=== PATIENT | female | born 2005 | race Caucasian/White ===

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

== ENCOUNTER 2025-04-24 12:56 | Outpatient (OUT) | payer BC, SELFPAY ==
[2025-04-24 13:46] LABS: Free T3 2.83 pg/mL (2.91-4.70); Thyroid Stimulating Hormone 1.113 uIU/mL (0.516-4.130)
[2025-04-26 20:12] LABS: Thyrotropin Receptor Ab, Serum <1.10 IU/L (0.00-1.75)
== END 2025-04-24 12:57 | disposition home or self-care (01) ==
LOC: LAB 05-01 11:26
PROVIDERS: PCP Nurse Practitioner Family; Visit Provider Internal Medicine
DX: R94.6 Abnormal results of thyroid function studies (principal)
CPT/HCPCS: 36415; 83520; 84439; 84442; 84443; 84480; 84481; 86376; 86800

== ENCOUNTER 2025-08-03 08:42 | Outpatient (OUT) | payer BC, SELFPAY ==
--- NOTE | 2025-08-03 08:45 | US_ITS ---
The [address] [address] Patient Name: RONNIE AGUILERA MRN: [id number] date: 2005 Sex: F Assigned Patient Location: US Current Patient Location: US Accession/Order Number: [id number] Exam Date: 08/03/2025 08:48 Report Date: 08/03/2025 10:16 At the request of: HENRIETTA HEREDIA Procedure: US abdomen limited LIMITED ABDOMINAL ULTRASOUND - spleen: CLINICAL HISTORY: Left Upper Quadrant Abdominal Pain COMPARISON: None The spleen is normal in size and echotexture measuring 10.9 cm in craniocaudal dimension. No intrasplenic masses are identified. The left lobe of the liver is noted to extend over the top of the spleen. The adjacent left kidney is normal in size and shows no hydronephrosis. There is no perinephric fluid. US/US abdomen limited IMPRESSION: NORMAL SPLEEN Impression dictated by: Karla Apple M.D. 08/03/2025 10:16 AM Dictation Location: [place] [address] Electronically authenticated by: [id number] Date: 08/03/2025 10:16
--- OUTSIDE RECORDS SUMMARY | 2025-08-03 08:45 | XMS_ITS | Clinical Summary ---
Author Organization [facility] Address [address] [place] [id number] Care Team Providers Care Assistant Tennis Professional Name Role Phone Unavailable Primary Care Provider Unavailabl e Allergies Active AllergyReactionsCriticalityNoted DateCommentsVancomycinRash,Swelling 04/14/2024 Medications MedicationSigDispense QuantityRefillsLast FilledStart DateEnd DateStatus ISIBLOOM 0.15-0.03 mg per tablet Take 1 tablet by mouth every morning.Active Family History Medical HistoryRelationCommentsDiabetesOtherRelationStatusCommentsOther Social History Tobacco UseTypesPacks/DayYears UsedDateSmoking Tobacco: NeverSmokeless Tobacco: Never Tobacco Cessation:Counseling Given: Not Answered CommentsUnknownSex and Gender InformationValueDate RecordedSex Assigned at BirthNot on fileLegal JvmYdldse83/02/2024 8:46 AM EDTGender IdentityNot on fileSexual OrientationNot on file Plan of Treatment Health MaintenanceDue DateLast DoneCommentsPeds To Adult Transition Initial Fpsdrgddmt97/28/2018Peds To Adult Transition Annual Oikeqowfwj29/28/2020HPV Vaccine (1 - 3-dose series)2020Meningococcal B Vaccine (1 of 2 - Standard) 2021nxiety Dxjjbhdtf63/28/2024hlamydia Screening (18-24)12/13/2023 Depression Wnpurjapw56/28/2024GC (Gonorrhea) Screening (18-24)12/13/2023HIV Rlzaplfez83/28/2024Hepatitis C Hfsavnxss54/28/2024ovid-19 Vaccine ( - 2024- season)2025Influenza Vaccine (#1), 06/17/2006 DTaP,Tdap,Td Vaccine (7 - Td or Tdap)8003/25/2018, 04/04/2011, 12/31/2006, Additional history existsHepatitis B VhbljrgFisqhqtom64/01/2006, 04/06/2006, 02/02/2006, Additional history existsMeningococcal Conjugate Vaccine Vbawcqnvo57/28/2023, 03/25/[address] [place] [address]
--- OUTSIDE RECORDS SUMMARY | 2025-08-03 08:45 | XMS_ITS | Clinical Summary ---
Author Organization [facility] Healthcare Address [address] [place] [address] Care Team Providers Care Building Architect Name Role Phone Natasha Jordan OD Unavailable Allergies Active AllergyReactionsCriticalityNoted DateCommentsVancomycinRash,SwellingLow 04/14/2024 Medications MedicationSigDispense QuantityRefillsLast FilledStart DateEnd DateStatus amitriptyline (Elavil) 25 MG tablet Take 25 mg by mouth at uvindun93/19/2025Active desogestrel-ethinyl estradiol (Enskyce) 0.15-30 MG-MCG tablet Indications: control counselingTake 1 tablet by mouth in the morning. 28 tablet 120//[id number]/6Active Resolved Problems ProblemNoted DateDiagnosed DateResolved DateLesion of iris/08/2023 Immunizations ImmunizationAdministration DatesNext JnzLDpV73/01/2006,04/06/2006,02/02/2006DTaP / Hep B / IPV06/17/2006,04/06/2006,02/02/2006DTaP / IPV04/04/2011DTaP, Fywvhccmcbk47/17/2007Hep A, Adult12/13/2012,04/04/2011Hep B, adult06/17/2006, 04/06/2006,02/02/2006,2005Hib (HbOC)04/06/2006,02/02/2006Hib (PRP-T) 12/31/2006,06/17/2006,04/06/2006,02/02/2006Influenza Whole07/17/2006,06/17/2006 MMR04/04/2011,12/31/2006MMRV12/31/2006Meningococcal ACWY, aaunwvfheje74/09/2018 Meningococcal CUB3U20Meningococcal RXH4J1403/25/2018Pneumococcal Conjugate PCV 13012/31/2006,06/17/2006,04/06/2006,02/02/2006Pneumococcal Conjugate PCV 7 12/31/2006,06/17/2006,04/06/2006,02/02/2006Polio, Eqetzdvpytc50/19/2011, 06/17/2006,04/06/2006,02/02/2006TD (adult), 2 Lf tetanus toxoid, preservative free, lydlmios28/09/1572Eypd32/09/2018,04/04/2011,12/31/2006,06/17/2006, 04/06/2006,02/02/20066731Lkxntxhjs99/19/2011,12/31/2006 Family History RelationNameStatusCommentsBrotherx 2AliveFatherAliveMotherAliveSisterx 1Alive Social History Tobacco UseTypesPacks/DayYears UsedDateSmoking Tobacco: NeverSmokeless Tobacco: Never Tobacco Cessation:Counseling Given: Not Answered Alcohol UseStandard Drinks/WeekCommentsNever0 (1 standard drink = 0.6 oz pure alcohol)CommentsUnknownSex and Gender InformationValueDate RecordedSex Assigned at BirthNot on fileLegal RjaAvsgsm86/15/2023 10:14 PM EDTGender IdentityNot on fileSexual OrientationNot on file Last Filed Vital Signs Vital SignReadingTime TakenCommentsBlood Hfzwrtcf796/7806 10:46 AM EDT Uolkd4873 2:48 PM EDTTemperature--Respiratory Qdeb4413 2:48 PM EDTOxygen Rrcsikirma75%04/24/2025 2:48 PM EDTInhaled Oxygen Concentration-- Ddkpsn57.9 kg (132 lb)04/24/2025 2:48 PM FSIIpnmsc461.3 cm (5' 3.5 )04/24/2025 2:48 PM EDTBody Mass Index23.02004/24/2025 2:48 PM EDT Plan of Treatment Not on file Insurance Care Teams Team MemberRelationshipSpecialtyStart DateEnd Date Natasha Jordan OD [address] [place] [address] Referring PhysicianOptometry12/16/23
== END 2025-08-03 08:43 | disposition home or self-care (01) ==
LOC: US 08:42
PROVIDERS: PCP Nurse Practitioner Family; Visit Provider Nurse Practitioner Family
DX: R10.12 Left upper quadrant pain (principal)
CPT/HCPCS: 76705